=== PATIENT | male | born 1975 | race Caucasian/White ===

== ENCOUNTER 2016-08-30 12:57 | Emergency (ER) | payer SELFPAY ==
[~2016-08-30] VITALS: Ht 177.8 cm; Wt 88.6 kg
[~2016-08-30 12:57] MED LIST: CARAFATE 1GM1 G PO; NORCO 325 MG-51 TAB PO; NORCO 325 MG-7.1 TAB PO; PHENERGAN 25 TA25 MG PO; PRILOSEC 20MG20 MG PO
[2016-08-30 12:59] VITALS: BP 139/82; TEMP 98.1
[2016-08-30] MEDS ORDERED: ULTRAM 50MG TAB50 MG PO (15:02)
[2016-08-30 15:14] VITALS: PULSE 67
== END 2016-08-30 15:11 | disposition home or self-care (01) ==
LOC: COL.ER 12:57
DX: S60.222A Contusion of left hand, initial encounter (principal); W22.09XA Striking against other stationary object, initial encounter; Y92.009 Unspecified place in unspecified non-institutional (private) residence as the place of occurrence of the external cause

== ENCOUNTER 2016-09-24 10:44 | Emergency (ER) | payer SELFPAY ==
[~2016-09-24] VITALS: Ht 177.8 cm; Wt 90.9 kg
[~2016-09-24 10:44] MED LIST changes: +ULTRAM 50MG TAB50 MG PO
[2016-09-24 10:51] VITALS: BP 136/88; TEMP 98.5
[2016-09-24] MEDS ORDERED: ULTRAM 50MG TAB50 MG PO (14:06)
[2016-09-24 14:17] VITALS: PULSE 75
== END 2016-09-24 14:16 | disposition home or self-care (01) ==
LOC: COL.ER 10:44
DX: S62.640A Nondisplaced fracture of proximal phalanx of right index finger, initial encounter for closed fracture (principal); F17.210 Nicotine dependence, cigarettes, uncomplicated; W23.0XXA Caught, crushed, jammed, or pinched between moving objects, initial encounter; Y92.410 Unspecified street and highway as the place of occurrence of the external cause

== ENCOUNTER 2016-12-15 10:23 | Day surgery (SDC) | payer SELFPAY ==
[~2016-12-15] VITALS: Ht 177.8 cm; Wt 86.2 kg
[2016-12-15 10:22] VITALS: BP 131/77; PULSE 67; TEMP 97.6
[2016-12-15] MEDS ORDERED: ULTRAM 50MG TAB50 MG PO (10:53)
[2016-12-15 13:04] VITALS: BP 116/72; PULSE 63
[2016-12-15 13:19] VITALS: BP 115/78; PULSE 63
[2016-12-15 13:34] VITALS: BP 112/63; PULSE 62
[2016-12-15 13:49] VITALS: BP 113/67; PULSE 57
[2016-12-15 14:04] VITALS: BP 133/84; PULSE 57
[2016-12-15] MEDS ORDERED: NORCO 325 MG-7.1 TAB PO (14:24)
[2016-12-15] MEDS ORDERED: PROMETHAZINE12.5 M5 PO (14:24)
[2016-12-15] MEDS ORDERED: CEPHALEXIN500 M1 PO (14:25)
== END 2016-12-15 15:25 | disposition home or self-care (01) ==
LOC: SDCO 10:23
DX: M72.0 Palmar fascial fibromatosis [Dupuytren] (principal); F17.210 Nicotine dependence, cigarettes, uncomplicated; Z83.3 Family history of diabetes mellitus; Z82.49 Family history of ischemic heart disease and other diseases of the circulatory system
CPT/HCPCS: J0690; J2250; J2704; J3010; J7120

== ENCOUNTER 2017-04-05 15:11 | Emergency (ER) | payer BC ==
[~2017-04-05] VITALS: Ht 177.8 cm; Wt 86.4 kg
[~2017-04-05 15:11] MED LIST changes: +CEPHALEXIN500 M1 PO; +PROMETHAZINE12.5 M5 PO
[2017-04-05 15:17] VITALS: TEMP 98.4
[2017-04-05 18:06] VITALS: BP 123/78; PULSE 67
== END 2017-04-05 18:07 | disposition home or self-care (01) ==
LOC: COL.ER 15:11
DX: S90.31XA Contusion of right foot, initial encounter (principal); W22.8XXA Striking against or struck by other objects, initial encounter; Y92.009 Unspecified place in unspecified non-institutional (private) residence as the place of occurrence of the external cause; F17.210 Nicotine dependence, cigarettes, uncomplicated

== ENCOUNTER 2017-04-11 19:10 | Emergency (ER) | payer BC ==
[~2017-04-11] VITALS: Ht 177.8 cm; Wt 86.4 kg
[2017-04-11 19:13] VITALS: BP 134/67; TEMP 98.4
[2017-04-11 21:22] LABS: BASO # 0.1 (0.0-0.2); BASO % 0.7 % (0.0-2.0); EOS # 0.2 (0.0-0.7); EOS % 2.9 % (0-4.0); GRAN # 2.9 (1.4-6.5); HEMATOCRIT 43.8 % (42.0-52.0); HEMOGLOBIN 14.7 g/dl (13.5-18.0); LYMPH # 3.4 (1.2-3.4); LYMPH % 46.9 % (20.0-51.0); MEAN CELL VOLUME 90 fl (80.0-100.0); MEAN CORPUSCULAR HEMOGLOBIN 30 pg (27.0-31.0); MEAN CORPUSCULAR HGB CONC 34 g/dl (33.0-37.0); MEAN PLATELET VOLUME 9.5 fl (7.4-10.4); MONO # 0.8 (0.1-0.6); MONO % 10.4 % (1.7-9.3); PLATELET COUNT 269 K/mm3 (130-400); RED BLOOD COUNT 4.85 M/mm3 (4.20-5.60); REDCELL DISTRIBUTION WIDTH-CV 13.2 % (11.5-14.5)
[2017-04-11 21:32] LABS: ALBUMIN 4.6 gm/dL (3.5-5.0); BILIRUBIN,TOTAL 0.5 mg/dL (0.0-1.0); CALCIUM 9.1 mg/dL (8.4-10.2); CREATININE, serum 1.05 mg/dL (0.66-1.25); POTASSIUM 4.1 mmol/L (3.4-5.0)
[2017-04-11] MEDS ORDERED: CARAFATE 1GM1 G PO (21:44)
[2017-04-11 22:35] VITALS: PULSE 66
== END 2017-04-11 22:36 | disposition home or self-care (01) ==
LOC: COL.ER 19:10
PROVIDERS: Physician Assistant
DX: R10.13 Epigastric pain (principal); K21.9 Gastro-esophageal reflux disease without esophagitis
CPT/HCPCS: J2270; J2405; J7030

== ENCOUNTER 2017-07-21 07:10 | Day surgery (SDC) | payer SELFPAY ==
[~2017-07-21] VITALS: Ht 177.8 cm; Wt 83.3 kg
[2017-07-21] MEDS ORDERED: PROTONIX 40MG T40 MG PO (07:25)
[2017-07-21] MEDS ORDERED: DEXILANT30 MG PO (07:55)
[2017-07-21 08:00] VITALS: BP 106/66; PULSE 60; TEMP 97.7
[2017-07-21 08:47] VITALS: BP 107/63; PULSE 60; TEMP 97.5
[2017-07-21 09:00] VITALS: BP 101/60; PULSE 56
[2017-07-21 09:15] VITALS: BP 108/64; PULSE 57
[2017-07-21 09:30] VITALS: BP 89/54; PULSE 54
== END 2017-07-21 09:45 | disposition home or self-care (01) ==
LOC: SDCO 07:10
DX: B96.81 Helicobacter pylori [H. pylori] as the cause of diseases classified elsewhere (principal); K25.7 Chronic gastric ulcer without hemorrhage or perforation; R10.13 Epigastric pain; F17.210 Nicotine dependence, cigarettes, uncomplicated; R11.2 Nausea with vomiting, unspecified
CPT/HCPCS: J2250; J2405; J3010; J7030

== ENCOUNTER 2018-04-26 11:40 | Emergency (ER) | payer SELFPAY ==
[~2018-04-26] VITALS: Ht 177.8 cm; Wt 86.4 kg
[~2018-04-26 11:40] MED LIST changes: +DEXILANT30 MG PO; +PROTONIX 40MG T40 MG PO
[2018-04-26 11:50] VITALS: TEMP 97.8
[2018-04-26] MEDS ORDERED: PRIL40 PO (11:53)
[2018-04-26 14:11] VITALS: BP 130/60; PULSE 82
== END 2018-04-26 14:13 | disposition home or self-care (01) ==
LOC: COL.ER 11:40
DX: M25.512 Pain in left shoulder (principal); K21.9 Gastro-esophageal reflux disease without esophagitis; F17.210 Nicotine dependence, cigarettes, uncomplicated; F12.90 Cannabis use, unspecified, uncomplicated; X50.0XXA Overexertion from strenuous movement or load, initial encounter
CPT/HCPCS: J1885

== ENCOUNTER 2018-05-29 11:22 | Emergency (ER) | payer SELFPAY ==
[~2018-05-29] VITALS: Ht 177.8 cm; Wt 81.8 kg
[~2018-05-29 11:22] MED LIST changes: +PRIL40 PO
[2018-05-29 11:24] VITALS: TEMP 97.5
[2018-05-29] MEDS ORDERED: MUCINEX1200 MG PO (11:34)
[2018-05-29] MEDS ORDERED: NEURONTIN300 MG/CAP PO (11:34)
[2018-05-29] MEDS ORDERED: PREDNISONE20 MG PO (12:40)
[2018-05-29 12:51] VITALS: BP 132/83; PULSE 75
== END 2018-05-29 12:53 | disposition home or self-care (01) ==
LOC: COL.ER 11:22
DX: J98.01 Acute bronchospasm (principal)

== ENCOUNTER 2018-12-20 14:07 | Emergency (ER) | payer SELFPAY ==
[~2018-12-20] VITALS: Ht 177.8 cm; Wt 85.9 kg
[~2018-12-20 14:07] MED LIST changes: +MUCINEX1200 MG PO; +NEURONTIN300 MG/CAP PO; +PREDNISONE20 MG PO
[2018-12-20 14:18] VITALS: BP 161/89; TEMP 98.2
[2018-12-20 15:13] LABS: BASO % 0.4 % (0.0-2.0); EOS # 0.1 (0.0-0.7); EOS % 1.2 % (0-4.0); GRAN # 4.5 (1.4-6.5); HEMATOCRIT 42.2 % (42.0-52.0); HEMOGLOBIN 14.3 g/dl (13.5-18.0); LYMPH # 2.1 (1.2-3.4); LYMPH % 28.4 % (20.0-51.0); MEAN CELL VOLUME 90 fl (80.0-100.0); MEAN CORPUSCULAR HEMOGLOBIN 30 pg (27.0-31.0); MEAN CORPUSCULAR HGB CONC 34 g/dl (33.0-37.0); MEAN PLATELET VOLUME 9.5 fl (7.4-10.4); MONO # 0.6 (0.1-0.6); MONO % 7.6 % (1.7-9.3); PLATELET COUNT 265 K/mm3 (130-400); REDCELL DISTRIBUTION WIDTH-CV 13.5 % (11.5-14.5)
[2018-12-20 15:26] LABS: ALANINE AMINOTRANSFERASE 22 U/L (21-72); ALBUMIN 4.3 gm/dL (3.5-5.0); ALKALINE PHOSPHATASE 60 U/L (50-136); ANION GAP 10 mmol/L (7-16); AST,SGOT 27 U/L (15-37); BILIRUBIN,TOTAL 0.3 mg/dL (0.0-1.0); BLOOD UREA NITROGEN 10 mg/dL (9-20); C-REACTIVE PROTEIN < 0.5 mg/dL (0.0-0.9); CARBON DIOXIDE 26 mmol/L (22-30); CHLORIDE 106 mmol/L (98-107); CREATININE, serum 0.89 (0.66-1.25); GLUCOSE 88 mg/dL (74-106); LIPASE 60 U/L (23-300); POTASSIUM 3.9 mmol/L (3.4-5.0); SODIUM 142 mmol/L (137-145); TOTAL PROTEIN 7.9 gm/dL (6.4-8.2)
[2018-12-20 15:47] VITALS: PULSE 68
== END 2018-12-20 15:47 | disposition home or self-care (01) ==
LOC: COL.ER 14:07
PROVIDERS: Physician Assistant
DX: K29.70 Gastritis, unspecified, without bleeding (principal); F17.210 Nicotine dependence, cigarettes, uncomplicated
CPT/HCPCS: C9113; J7030

== ENCOUNTER 2019-01-20 15:21 | Emergency (ER) | payer SELFPAY ==
[~2019-01-20] VITALS: Ht 177.8 cm; Wt 81.8 kg
[2019-01-20 15:34] VITALS: TEMP 98.8
[2019-01-20] MEDS ORDERED: ZANAFLEX2 MG PO (15:38)
[2019-01-20] MEDS ORDERED: NAPROSYN500 MG PO ×2 (15:39→17:07)
[2019-01-20] MEDS ORDERED: NEURONTIN300 MG/CAP PO (17:07)
[2019-01-20] MEDS ORDERED: ZANAFLEX CAPSULE2 MG PO (17:07)
[2019-01-20 18:02] VITALS: BP 130/80; PULSE 75
== END 2019-01-20 18:02 | disposition home or self-care (01) ==
LOC: COL.ER 15:21
DX: M54.5 Low back pain (principal); F17.210 Nicotine dependence, cigarettes, uncomplicated
CPT/HCPCS: J1885; J2360

== ENCOUNTER 2019-02-18 07:45 | Emergency (ER) | payer SELFPAY ==
[~2019-02-18] VITALS: Ht 177.8 cm; Wt 84.1 kg
[~2019-02-18 07:45] MED LIST changes: +NAPROSYN500 MG PO; +ZANAFLEX CAPSULE2 MG PO; +ZANAFLEX2 MG PO
[2019-02-18 08:04] VITALS: BP 150/90; TEMP 98
[2019-02-18] MEDS ORDERED: NORCO 325 MG-7.1 TAB PO (08:39)
[2019-02-18] MEDS ORDERED: CRUTCHES MC (08:44)
[2019-02-18 09:10] VITALS: PULSE 75
== END 2019-02-18 09:10 | disposition home or self-care (01) ==
LOC: COL.ER 07:45
DX: S90.111A Contusion of right great toe without damage to nail, initial encounter (principal); W23.0XXA Caught, crushed, jammed, or pinched between moving objects, initial encounter; Y92.59 Other trade areas as the place of occurrence of the external cause

== ENCOUNTER 2019-05-01 11:33 | Emergency (ER) | payer SELFPAY ==
[~2019-05-01] VITALS: Ht 177.8 cm; Wt 84.1 kg
[~2019-05-01 11:33] MED LIST changes: +CRUTCHES MC
[2019-05-01 11:41] VITALS: BP 145/84; TEMP 97.9
[2019-05-01 12:36] VITALS: PULSE 72
== END 2019-05-01 12:36 | disposition home or self-care (01) ==
LOC: COL.ER 11:33
DX: J10.1 Influenza due to other identified influenza virus with other respiratory manifestations (principal); F17.210 Nicotine dependence, cigarettes, uncomplicated

== ENCOUNTER 2019-08-19 12:02 | Emergency (ER) | payer OTHER ==
[~2019-08-19] VITALS: Ht 177.8 cm; Wt 81.8 kg
[~2019-08-19 12:02] MED LIST changes: +VALIUM 5MG T5 MG/TAB PO
[2019-08-19 12:21] VITALS: BP 133/84; TEMP 98.6
[2019-08-19 13:34] VITALS: PULSE 70
== END 2019-08-19 13:34 | disposition home or self-care (01) ==
LOC: COL.ER 12:02
DX: M54.5 Low back pain (principal); G89.29 Other chronic pain; Z79.52 Long term (current) use of systemic steroids; Z87.39 Personal history of other diseases of the musculoskeletal system and connective tissue
CPT/HCPCS: J1885

== ENCOUNTER → 2020-01-22 | Outpatient (CLI) | payer SELFPAY ==
[2020-01-22 10:09] LABS: BASO # 0.1 (0.0-0.2); BASO % 0.5 % (0.0-2.0); EOS # 0.1 (0.0-0.7); EOS % 1.4 % (0-4.0); GRAN # 5.1 (1.4-6.5); GRAN % 55.9 % (42.2-75.2); HEMOGLOBIN 15.6 g/dl (13.5-18.0); LYMPH # 2.9 (1.2-3.4); LYMPH % 31.4 % (20.0-51.0); MEAN CELL VOLUME 93 fl (80.0-100.0); MEAN CORPUSCULAR HEMOGLOBIN 32 pg (27.0-31.0); MEAN CORPUSCULAR HGB CONC 34 g/dl (33.0-37.0); MEAN PLATELET VOLUME 9.6 fl (7.4-10.4); MONO # 0.9 (0.1-0.6); MONO % 10.3 % (1.7-9.3); PLATELET COUNT 287 K/mm3 (130-400); RED BLOOD COUNT 4.94 M/mm3 (4.20-5.60); REDCELL DISTRIBUTION WIDTH-CV 13.4 % (11.5-14.5)
[2020-01-22 10:17] LABS: INR 0.9 (0.8-3.0); PROTHROMBIN TIME 10.5 SECONDS (9.7-12.8)
[2020-01-22 10:18] LABS: CALCIUM 9.2 mg/dL (8.4-10.2); CREATININE, serum 0.9 (0.66-1.25); POTASSIUM 4.6 mmol/L (3.4-5.0)
[2020-01-22 10:20] LABS: PARTIAL THROMBOPLASTIN TIME 32.8 SECONDS (26.0-37.0)
== END ==
LOC: COL.LAB 09:20
PROVIDERS: Orthopaedic Surgery Orthopaedic Surgery of the Spine
DX: M48.062 Spinal stenosis, lumbar region with neurogenic claudication (principal)

== ENCOUNTER 2020-08-31 09:06 | Emergency (ER) | payer SELFPAY ==
[~2020-08-31] VITALS: Ht 177.8 cm; Wt 86.4 kg
[2020-08-31 09:22] VITALS: BP 145/99; TEMP 98.3
[2020-08-31 11:10] VITALS: PULSE 75
[2020-11-06] MEDS ORDERED: PREDNISONE20 MG PO (21:30)
[2020-11-06] MEDS ORDERED: ZITHROMAX Z PA250 MG PO ×2 (21:30)
[2020-11-06] MEDS ORDERED: ZITHROMAX 250M250 MG PO (21:32)
== END 2020-08-31 11:10 | disposition home or self-care (01) ==
LOC: COL.ER 09:06
DX: S60.221A Contusion of right hand, initial encounter (principal); F17.210 Nicotine dependence, cigarettes, uncomplicated; W23.1XXA Caught, crushed, jammed, or pinched between stationary objects, initial encounter

== ENCOUNTER 2020-10-18 15:36 | Emergency (ER) | payer SELFPAY ==
[~2020-10-18] VITALS: Ht 177.8 cm; Wt 85.0 kg
[2020-10-18 15:46] VITALS: TEMP 97.7
[2020-10-18 16:23] LABS: BASO % 0.4 % (0.0-2.0); EOS # 0.1 (0.0-0.7); EOS % 0.7 % (0-4.0); GRAN # 7.8 (1.4-6.5); GRAN % 71.2 % (42.2-75.2); HEMATOCRIT 46.6 % (42.0-52.0); LYMPH # 2.5 (1.2-3.4); LYMPH % 22.5 % (20.0-51.0); MEAN CELL VOLUME 91 fl (80.0-100.0); MEAN CORPUSCULAR HEMOGLOBIN 31 pg (27.0-31.0); MEAN CORPUSCULAR HGB CONC 34 g/dl (33.0-37.0); MEAN PLATELET VOLUME 9.1 fl (7.4-10.4); MONO # 0.5 (0.1-0.6); MONO % 4.8 % (1.7-9.3); PLATELET COUNT 315 K/mm3 (130-400); RED BLOOD COUNT 5.11 M/mm3 (4.20-5.60); REDCELL DISTRIBUTION WIDTH-CV 14.2 % (11.5-14.5)
[2020-10-18 16:36] LABS: ALANINE AMINOTRANSFERASE 17 U/L (4-49); ALBUMIN 4.3 gm/dL (3.5-5.0); ALKALINE PHOSPHATASE 65 U/L (50-136); ANION GAP 12 mmol/L (7-16); AST,SGOT 19 U/L (15-37); BILIRUBIN,TOTAL 0.5 mg/dL (0.0-1.0); BLOOD UREA NITROGEN 11 mg/dL (9-20); CARBON DIOXIDE 23 mmol/L (22-30); CHLORIDE 104 mmol/L (98-107); CREATININE, serum 0.96 (0.66-1.25); GLUCOSE 166 mg/dL (74-106); POTASSIUM 3.4 mmol/L (3.4-5.0); SODIUM 139 mmol/L (137-145); TOTAL PROTEIN 8.1 gm/dL (6.4-8.2)
[2020-10-18 16:50] LABS: TROPONIN-I < 0.012 ng/mL (0.000-0.035)
[2020-10-18] MEDS ORDERED: PREDNISONE20 MG PO (18:47)
[2020-10-18] MEDS ORDERED: DOXYCYCLINE 10100 MG PO (18:47)
[2020-10-18 18:57] VITALS: BP 128/76; PULSE 83
[2020-11-06] MEDS ORDERED: PREDNISONE20 MG PO (21:30)
[2020-11-06] MEDS ORDERED: ZITHROMAX Z PA250 MG PO ×2 (21:30)
[2020-11-06] MEDS ORDERED: ZITHROMAX 250M250 MG PO (21:32)
== END 2020-10-18 19:20 | disposition home or self-care (01) ==
LOC: COL.ER 15:36
PROVIDERS: Nurse Practitioner
DX: R06.02 Shortness of breath (principal); R07.89 Other chest pain; F17.210 Nicotine dependence, cigarettes, uncomplicated; Z20.822 Contact with and (suspected) exposure to COVID-19
CPT/HCPCS: J2930; J7030

== ENCOUNTER → 2020-11-19 | Outpatient (CLI) | payer SELFPAY ==
[~2020-11-19] MED LIST changes: +BACTRIM DS 8001 TAB PO; +DOXYCYCLINE 10100 MG PO; +ZITHROMAX 250M250 MG PO; +ZITHROMAX Z PA250 MG PO
== END ==
LOC: COL.RAD 11:00
DX: R10.13 Epigastric pain (principal)

== ENCOUNTER 2020-11-27 16:57 | Emergency (ER) | payer SELFPAY ==
[~2020-11-27] VITALS: Ht 177.8 cm; Wt 77.3 kg
[~2020-11-27 16:57] MED LIST changes: -BACTRIM DS 8001 TAB PO
[2020-11-27 18:08] LABS: BASO # 0.1 (0.0-0.2); BASO % 0.6 % (0.0-2.0); EOS # 0.1 (0.0-0.7); EOS % 0.7 % (0-4.0); GRAN # 7.9 (1.4-6.5); HEMATOCRIT 49.3 % (42.0-52.0); HEMOGLOBIN 17.2 g/dl (13.5-18.0); LYMPH # 3.4 (1.2-3.4); LYMPH % 26.9 % (20.0-51.0); MEAN CELL VOLUME 90 fl (80.0-100.0); MEAN CORPUSCULAR HEMOGLOBIN 31 pg (27.0-31.0); MEAN CORPUSCULAR HGB CONC 35 g/dl (33.0-37.0); MONO # 1.1 (0.1-0.6); MONO % 8.5 % (1.7-9.3); PLATELET COUNT 319 K/mm3 (130-400); RED BLOOD COUNT 5.49 M/mm3 (4.20-5.60); REDCELL DISTRIBUTION WIDTH-CV 13.6 % (11.5-14.5)
[2020-11-27 18:19] LABS: ALANINE AMINOTRANSFERASE 21 U/L (4-49); ALBUMIN 4.4 gm/dL (3.5-5.0); ALKALINE PHOSPHATASE 76 U/L (50-136); ANION GAP 11 mmol/L (7-16); AST,SGOT 23 U/L (15-37); BILIRUBIN,TOTAL 0.9 mg/dL (0.0-1.0); BLOOD UREA NITROGEN 9 mg/dL (9-20); CARBON DIOXIDE 24 mmol/L (22-30); CHLORIDE 103 mmol/L (98-107); CREATININE, serum 1.14 (0.66-1.25); GLUCOSE 80 mg/dL (74-106); SODIUM 138 mmol/L (137-145); TOTAL PROTEIN 7.7 gm/dL (6.4-8.2)
[2020-11-27 18:21] LABS: ACETAMINOPHEN < 10 ug/mL (10-30); ALCOHOL(ethanol),MEDICAL < 10 mg/dL; SALICYLATE < 1.0 mg/dL
[2020-11-27 19:35] LABS: COLLECTION METHOD CLEAN CATCH
[2020-11-27 19:41] LABS: MUCOUS Present /lpf; PH 5 (5-8); SQUAMOUS EPITHELIAL 0-2 /hpf; URINE APPEARANCE Hazy; URINE BACTERIA None Seen /hpf; URINE BILIRUBIN Negative (NEGATIVE); URINE BLOOD Negative (NEGATIVE); URINE COLOR Amber; URINE GLUCOSE Negative (NEGATIVE); URINE KETONE 1+ (NEGATIVE); URINE LEUKOCYTE ESTERASE Negative (NEGATIVE); URINE NITRATE Negative (NEGATIVE); URINE PROTEIN(semi-quant) Negative (NEGATIVE); URINE RBC 0-2 /hpf; URINE UROBILINOGEN >=4.0 mg/dL (NEGATIVE)
[2020-11-27 20:35] LABS: TRICYCLIC ANTIDEPRESS URINE POSITIVE
[2020-11-28 06:15] VITALS: BP 127/58; PULSE 68; TEMP 97.6
== END 2020-11-28 06:20 ==
LOC: COL.ER 16:57
PROVIDERS: Nurse Practitioner
DX: J44.1 Chronic obstructive pulmonary disease with (acute) exacerbation (principal); F17.210 Nicotine dependence, cigarettes, uncomplicated; Z20.822 Contact with and (suspected) exposure to COVID-19

== ENCOUNTER 2021-01-19 19:46 | Emergency (ER) | payer SELFPAY ==
[~2021-01-19] VITALS: Ht 177.8 cm; Wt 81.8 kg
[2021-01-19 19:54] VITALS: TEMP 98.2
[2021-01-19] MEDS ORDERED: BACTRIM DS 8001 TAB PO (21:11)
[2021-01-19 21:35] VITALS: BP 114/78; PULSE 76
== END 2021-01-19 21:35 | disposition home or self-care (01) ==
LOC: COL.ER 19:46
DX: L03.311 Cellulitis of abdominal wall (principal)

== ENCOUNTER 2021-03-22 11:13 | Emergency (ER) | payer SELFPAY ==
[~2021-03-22] VITALS: Ht 177.8 cm; Wt 81.8 kg
[~2021-03-22 11:13] MED LIST changes: +BACTRIM DS 8001 TAB PO
[2021-03-22 13:45] VITALS: BP 128/71; PULSE 80; TEMP 97.9
[2021-03-22] MEDS ORDERED: NORCO 325 MG-51 TAB PO ×2 (16:43)
== END 2021-03-22 13:45 | disposition home or self-care (01) ==
LOC: COL.ER 11:13
DX: U07.1 COVID-19 (principal)

== ENCOUNTER 2022-01-15 18:19 | Emergency (ER) | payer BC ==
[~2022-01-15] VITALS: Ht 177.8 cm; Wt 84.1 kg
[2022-01-15 18:22] VITALS: TEMP 97.4
[2022-01-15 19:00] LABS: BASO % 0.4 % (0.0-2.0); EOS # 0.1 K/mm3 (0.0-0.7); EOS % 1.4 % (0.0-4.0); GRAN # 6.5 K/mm3 (1.4-6.5); GRAN % 64.1 % (42.2-75.2); HEMATOCRIT 44.2 % (42.0-52.0); HEMOGLOBIN 15.3 g/dl (13.5-18.0); LYMPH # 2.7 K/mm3 (1.2-3.4); LYMPH % 27.2 % (20.0-51.0); MEAN CELL VOLUME 91 fl (80.0-100.0); MEAN CORPUSCULAR HEMOGLOBIN 32 pg (27-31); MEAN CORPUSCULAR HGB CONC 35 g/dl (33.0-37.0); MEAN PLATELET VOLUME 9.1 fl (7.4-10.4); MONO # 0.7 K/mm3 (0.1-0.6); MONO % 6.6 % (1.7-9.3); PLATELET COUNT 336 K/mm3 (130-400); RED BLOOD COUNT 4.85 M/mm3 (4.20-5.60); REDCELL DISTRIBUTION WIDTH-CV 13.5 % (11.5-14.5)
[2022-01-15 19:17] LABS: CALCIUM 8.7 mg/dL (8.4-10.2); CREATININE, serum 0.9 mg/dL (0.72-1.25); POTASSIUM 3.5 mmol/L (3.5-4.5)
[2022-01-15] MEDS ORDERED: NAPROSYN500 MG PO (20:26)
[2022-01-15] MEDS ORDERED: AMOXICILLIN 8751 TAB PO (20:26)
[2022-01-15] MEDS ORDERED: ROXICODONE 55 MG/TAB PO (20:26)
[2022-01-15 20:32] VITALS: BP 128/81; PULSE 68
== END 2022-01-15 20:42 | disposition home or self-care (01) ==
LOC: COL.ER 18:19
PROVIDERS: Emergency Medicine
DX: L03.211 Cellulitis of face (principal); K04.7 Periapical abscess without sinus
CPT/HCPCS: J0295; J1885; Q9967

== ENCOUNTER 2022-06-28 08:25 | Emergency (ER) | payer SELFPAY ==
[~2022-06-28] VITALS: Ht 177.8 cm; Wt 90.9 kg
[~2022-06-28 08:25] MED LIST changes: +AMOXICILLIN 8751 TAB PO; +ROXICODONE 55 MG/TAB PO
[2022-06-28 08:35] VITALS: BP 131/82; PULSE 69; TEMP 97.8
== END 2022-06-28 09:08 | disposition home or self-care (01) ==
LOC: COL.ER 08:25
DX: M77.01 Medial epicondylitis, right elbow (principal); X50.0XXA Overexertion from strenuous movement or load, initial encounter; Y92.59 Other trade areas as the place of occurrence of the external cause; Y99.0 Civilian activity done for income or pay

== ENCOUNTER 2022-11-26 15:43 | Emergency (ER) | payer SELFPAY ==
[~2022-11-26] VITALS: Ht 177.8 cm; Wt 72.7 kg
[2022-11-26 16:07] LABS: BASO % 0.4 % (0.0-2.0); EOS # 0.1 K/mm3 (0.0-0.7); GRAN % 63.6 % (42.2-75.2); HEMATOCRIT 45.3 % (42.0-52.0); HEMOGLOBIN 15.1 g/dl (13.5-18.0); LYMPH # 2.2 K/mm3 (1.2-3.4); LYMPH % 27.3 % (20.0-51.0); MEAN CELL VOLUME 93 fl (80.0-100.0); MEAN CORPUSCULAR HEMOGLOBIN 31 pg (27-31); MEAN CORPUSCULAR HGB CONC 33 g/dl (33.0-37.0); MEAN PLATELET VOLUME 9.4 fl (7.4-10.4); MONO # 0.6 K/mm3 (0.1-0.6); MONO % 7.4 % (1.7-9.3); PLATELET COUNT 306 K/mm3 (130-400); RED BLOOD COUNT 4.87 M/mm3 (4.20-5.60); REDCELL DISTRIBUTION WIDTH-CV 14.5 % (11.5-14.5)
[2022-11-26 16:13] LABS: PROTHROMBIN TIME 10.6 SECONDS (9.7-12.8)
[2022-11-26 16:16] LABS: PARTIAL THROMBOPLASTIN TIME 30.8 SECONDS (26.0-37.0)
[2022-11-26 16:24] LABS: ALBUMIN 4.1 gm/dL (3.5-5.0); BILIRUBIN,TOTAL 0.3 mg/dL (0.2-1.2); CALCIUM 9.5 mg/dL (8.4-10.2); CREATININE, serum 1.05 mg/dL (0.72-1.25); TOTAL PROTEIN 8.4 gm/dL (6.2-8.1)
[2022-11-26 16:30] LABS: TROPONIN-I 0.01 ng/mL (0.00-0.033)
[2022-11-26 19:15] VITALS: BP 127/80; PULSE 65
[2022-11-26 19:39] VITALS: TEMP 98.3
== END 2022-11-26 20:04 | disposition home or self-care (01) ==
LOC: COL.ER 15:43
PROVIDERS: Family Medicine
DX: R07.89 Other chest pain (principal); I25.2 Old myocardial infarction; F17.200 Nicotine dependence, unspecified, uncomplicated; Z95.5 Presence of coronary angioplasty implant and graft

== ENCOUNTER 2023-05-23 12:28 | Emergency (ER) | payer OTHER ==
[~2023-05-23] VITALS: Ht 177.8 cm; Wt 86.4 kg
[2023-05-23 12:53] VITALS: TEMP 98.7
[2023-05-23] MEDS ORDERED: NS 1,000 ML IV ONE (13:30)
[2023-05-23] MEDS ORDERED: Ondansetron 4 MG/2 ML VIAL IV PRN (13:30)
[2023-05-23 13:39] LABS: BASO # 0.1 K/mm3 (0.0-0.2); BASO % 0.6 % (0.0-2.0); EOS # 0.1 K/mm3 (0.0-0.7); EOS % 1.6 % (0.0-4.0); GRAN # 5.1 K/mm3 (1.4-6.5); GRAN % 62.3 % (42.2-75.2); HEMATOCRIT 44.1 % (42.0-52.0); HEMOGLOBIN 14.8 g/dl (13.5-18.0); LYMPH # 2.1 K/mm3 (1.2-3.4); LYMPH % 25.9 % (20.0-51.0); MEAN CELL VOLUME 93 fl (80.0-100.0); MEAN CORPUSCULAR HEMOGLOBIN 31 pg (27-31); MEAN CORPUSCULAR HGB CONC 34 g/dl (33.0-37.0); MEAN PLATELET VOLUME 9.3 fl (7.4-10.4); MONO # 0.8 K/mm3 (0.1-0.6); MONO % 9.4 % (1.7-9.3); PLATELET COUNT 289 K/mm3 (130-400); RED BLOOD COUNT 4.74 M/mm3 (4.20-5.60); REDCELL DISTRIBUTION WIDTH-CV 13.7 % (11.5-14.5)
[2023-05-23 14:11] LABS: ALBUMIN 3.9 gm/dL (3.5-5.0); BILIRUBIN,TOTAL 0.3 mg/dL (0.2-1.2); CALCIUM 9.5 mg/dL (8.4-10.2); CREATININE, serum 0.91 mg/dL (0.72-1.25); POTASSIUM 4.2 mmol/L (3.5-4.5); TOTAL PROTEIN 7.4 gm/dL (6.2-8.1)
[2023-05-23 15:21] VITALS: BP 147/95; PULSE 88
== END 2023-05-23 15:21 | disposition home or self-care (01) ==
LOC: COL.ER 12:28
PROVIDERS: Personal Emergency Response Attendant
DX: U07.1 COVID-19 (principal); R05.9 Cough, unspecified; R09.81 Nasal congestion; R51.9 Headache, unspecified; R43.8 Other disturbances of smell and taste; F17.200 Nicotine dependence, unspecified, uncomplicated; Z87.09 Personal history of other diseases of the respiratory system
CPT/HCPCS: J7030

== ENCOUNTER 2023-07-10 20:54 | Emergency (ER) | payer OTHER ==
[~2023-07-10] VITALS: Ht 177.8 cm; Wt 86.4 kg
[2023-07-10 21:03] VITALS: BP 124/86; TEMP 97.1
[2023-07-10] MEDS ORDERED: NAPROSYN500 MG PO (21:21)
[2023-07-10] MEDS ORDERED: CEPHALEXIN500 M1 PO (21:21)
[2023-07-10 21:30] VITALS: PULSE 103
[2023-07-10] MEDS ORDERED: Cephalexin 500 MG CAP PO ONE (21:30)
[2023-07-10] MEDS ORDERED: Naproxen 250 MG TAB PO ONE (21:30)
== END 2023-07-10 21:32 | disposition home or self-care (01) ==
LOC: COL.ER 20:54
DX: H05.012 Cellulitis of left orbit (principal); F17.200 Nicotine dependence, unspecified, uncomplicated